=== PATIENT | female | born 1965 | race Caucasian/White ===

== ENCOUNTER 2020-03-31 16:21 | Emergency (ER) | payer MEDICARE, MEDICAID ==
[~2020-03-31] VITALS: Ht 165.1 cm; Wt 77.1 kg
[2020-03-31 16:29] VITALS: BP 123/79
== END 2020-03-31 18:00 | disposition home or self-care (01) ==
LOC: EDBD 16:21 → ER 16:21
DX: S30.0XXA Contusion of lower back and pelvis, initial encounter (principal); S80.11XA Contusion of right lower leg, initial encounter; M51.37 Other intervertebral disc degeneration, lumbosacral region; M19.90 Unspecified osteoarthritis, unspecified site; W19.XXXA Unspecified fall, initial encounter; Y93.89 Activity, other specified; Y99.8 Other external cause status; Y92.89 Other specified places as the place of occurrence of the external cause
CPT/HCPCS: 72220